=== PATIENT | female | born 1975 | race African-American/Black ===

== ENCOUNTER 2017-01-25 11:09 | Emergency (ER) | payer OTHER ==
[2017-01-25 11:34] VITALS: BP 158/96; PULSE 72; TEMP 99; BMI 29.7
--- NOTE | 2017-01-25 11:43 | PDOC ---
History of Present Illness - General Chief Complaint: Injury Stated Complaint: LOWER BACK PAIN Time Seen by Provider: 01/25/17 11:11 - History of Present Illness Initial Comments: 01/25/17 12:18 Complaint: Low back pain History of present illness: Patient states that she strained her back at work several days ago. Persistent intermittent pain and stiffness in the bilateral sacral area. Difficulty arising from a sitting position. However, no pain while standing or walking. No radiation of the pain to her lower extremities. No distal numbness tingling pain or weakness in the legs. No bowel or bladder difficulties Review of systems: As above. In addition, no chest pain, shortness of breath, abdominal pain, nausea, vomiting, diarrhea, visual or focal neurologic symptoms , unsteadiness of gait. Past medical history: No significant medical or surgical illnesses past or present. Had a "tummy tuck surgery" recently without complication Social/family history reviewed and noncontributory Physical exam: Afebrile, vital signs stable. Well-developed well-nourished, no acute distress, adequately ambulatory without significant disability. However, there is difficulty arising from a sitting position, requiring assistance HEENT clear Neck supple without bruit mass or nodes Chest clear CV regular without murmur rub or gallop Abdomen benign LS spine shows preservation of the normal lumbar lordosis. No point tenderness of the vertebral bodies. No inflammatory changes. Patient indicates pain in the bilateral sacral area. Straight leg raising is negative. No distal sensory or motor deficits. Gait stable and unimpaired Impression: Mild to moderate low back strain. No radicular symptoms. Plan: Symptomatic treatment with rest, heat, and medication for 1 week. See back specialist if there is no improvement. Home from work with rest until that time. Past History - Past Medical History Allergies/Adverse Reactions: Allergies Allergy/AdvReac Type Severity Reaction Status Date / Time No Known Allergies Allergy Verified 01/25/17 11:26 Home Medications: Ambulatory Orders Ibuprofen [Motrin -] 600 mg PO QID PRN #30 tablet 01/25/17 Methocarbamol [Robaxin-750] 750 mg PO BID #14 tablet 01/25/17 Other medical history: denies - Psycho/Social/Smoking Cessation Hx Anxiety: No Suicidal Ideation: No Smoking History: Never smoked Have you smoked in the past 12 months: No Information on smoking cessation initiated: No Hx Alcohol Use: No Drug/Substance Use Hx: No Substance Use Type: Alcohol *Physical Exam - Vital Signs Last Vital Signs Temp Pulse Resp BP Pulse Ox 99 F 72 20 158/96 99 01/25/17 11:10 01/25/17 11:10 01/25/17 11:10 01/25/17 11:10 01/25/17 11:10 Medical Decision Making - Medical Decision Making 01/25/17 11:55 *DC/Admit/Observation/Transfer Diagnosis at time of Disposition: Low back strain Qualifiers: Encounter type: initial encounter Qualified Code(s): S39.012A - Strain of muscle, fascia and tendon of lower back, initial encounter - Discharge Dispostion Disposition: HOME Condition at time of disposition: Stable Admit: No - Prescriptions Prescriptions: Ibuprofen [Motrin -] 600 mg PO QID PRN #30 tablet PRN Reason: Pain Methocarbamol [Robaxin-750] 750 mg PO BID #14 tablet - Referrals Referrals: Dionicio Denny MD [Staff Physician] - 1 week - Patient Instructions Printed Discharge Instructions: DI for Back Strain or Sprain Additional Instructions: Rest. Heat to the low back muscles. Medication as directed. Limited standing and walking, but maintain activity with gentle stretching. Do not sit in a chair. See back specialist if no improvement in one week. - Post Discharge Activity Work/School Note: Back to Work
== END 2017-01-25 11:44 | disposition home or self-care (01) ==
LOC: FER 11:09
DX: S39.012A Strain of muscle, fascia and tendon of lower back, initial encounter (principal); X58.XXXA Exposure to other specified factors, initial encounter; Y93.89 Activity, other specified; Y92.9 Unspecified place or not applicable
CPT/HCPCS: 99281-25